=== PATIENT | male | born 1950 | race Caucasian/White ===

== ENCOUNTER 2017-01-05 06:18 | Outpatient (CLI) | payer MEDICARE, OTHER ==
[~2017-01-05] VITALS: Ht 182.9 cm; Wt 127.0 kg
[2017-01-05] VITALS (9 sets, daily range): BP systolic 91–123; BP diastolic 57–68
[2017-01-05] MEDS ORDERED: LIDOCAINE 2% 20 ML VIAL. ONE (07:11)
[2017-01-05] MEDS ORDERED: OXYB5TAB PO (07:13)
[2017-01-05] MEDS ORDERED: GABA400C PO (07:13)
[2017-01-05] MEDS ORDERED: ATOR40TA59 PO (07:13)
[2017-01-05] MEDS ORDERED: LISI-338 PO (07:13)
[2017-01-05] MEDS ORDERED: CYAN10005 PO (07:13)
[2017-01-05] MEDS ORDERED: TAMS0.4C2 PO (07:13)
[2017-01-05] MEDS ORDERED: HYDR50TA6 PO (07:13)
[2017-01-05] MEDS ORDERED: FISH1CAP PO (07:13)
[2017-01-05] MEDS ORDERED: METO25TA4 PO (07:13)
[2017-01-05] MEDS ORDERED: CHOL10003 PO (07:13)
[2017-01-05] MEDS ORDERED: ASPI-630 PO (07:13)
[2017-01-05] MEDS ORDERED: CALC500T54 PO (07:13)
[2017-01-05 07:17] LABS: HEMATOCRIT 41.6 % (39.0-53.0); RED BLOOD COUNT 4.53 x10^6/uL (4.30-5.70); RED CELL DISTRIBUTION WIDTH 14.7 % (11.5-14.5); WHITE BLOOD COUNT 6.2 x10^3/uL (4.0-11.0)
[2017-01-05 07:32] LABS: PROTHROMBIN TIME PATIENT 12.4 SEC (11.7-14.0)
[2017-01-05] MEDS ORDERED: IOHEXOL 300 MG/ML 100ML VIAL. ONE (07:39)
[2017-01-05 07:40] LABS: CALCIUM 10.3 mg/dL (8.5-10.1); CREATININE 1.1 mg/dL (0.7-1.3); GFR 66.6; POTASSIUM 4.2 mmol/L (3.5-5.1)
--- NOTE | 2017-01-05 07:49 | PDOC ---
MODERATE SEDATION ASSESSMENT RISKS/ALTERNATIVES Risks/Alternatives Risks and alternatives of this type of sedation and procedure discussed with: RISK/ALTERNATIVES: Patient H & P ON CHART H & P H & P on chart and reviewed for co-morbid conditions and appropriate labs. H&P ON CHART: Yes STATUS PREG STATUS ASSESSED: N/A MEDS/ALLERGIES REVIEWED Meds/Allergies Reviewed Medications and Allergies including time and route of recently administered narcotics and sedatives. MEDS/ALLERGIES REVIEWED: Yes ASA RATING ASA RATING: II AIRWAY ASSESSMENT Airway Assessment Airway patency, oral function limitations, presence of caps, crowns, dentures, partials, and ability to extend neck assessed. AIRWAY ASSESSMENT: Yes MALLAMPATI SCORE MALLAMPATI SCORE: II PRE-SEDATION ASSESSMENT PRE-SEDATION ASSESSMENT: Yes ANSON VILLATORO MD Jan 05, 2017 07:48
[2017-01-05] MEDS ORDERED: VERAPAMIL 5 MG/2 ML VIAL. ONE (07:54)
[2017-01-05] MEDS ORDERED: fentaNYL PF VIAL 100 MCG/2 ML VIAL ONE (07:54)
[2017-01-05] MEDS ORDERED: MIDAZOLAM HCL/PF 2 MG/2 ML VIAL. ONE (07:54)
[2017-01-05] MEDS ORDERED: HEPARIN for IV BOLUS 10,000 UNIT/10 ML VIAL. ONE (07:54)
[2017-01-05] MEDS ORDERED: NITROGLYCERIN 200 MCG/2 ML SYRINGE FOR CATH/VASC LAB. ONE (07:56)
[2017-01-05] MEDS ORDERED: HEPARIN for IV BOLUS 10,000 UNIT/10 ML VIAL. IART ONE (08:45)
[2017-01-05] MEDS ORDERED: NITROGLYCERIN SUBLINGUAL 0.4 MG BOTTLE OF 25. SL PRN (08:45)
[2017-01-05] MEDS ORDERED: NITROGLYCERIN 200 MCG/2 ML SYRINGE FOR CATH/VASC LAB. IART ONE (08:45)
[2017-01-05] MEDS ORDERED: VERAPAMIL 5 MG/2 ML VIAL. IART ONE (08:45)
[2017-01-05] MEDS ORDERED: CONTRAST GIVEN MC PRN (08:45)
[2017-01-05] MEDS ORDERED: IOHEXOL 300 MG/ML 100ML VIAL. IART ONE (08:45)
[2017-01-05] MEDS ORDERED: 0.9 % SODIUM CHLORIDE 10 ML DISP.SYRIN. IV PRN (08:45)
[2017-01-05] MEDS ORDERED: MIDAZOLAM HCL/PF 2 MG/2 ML VIAL. IV ONE (08:45)
[2017-01-05] MEDS ORDERED: LIDOCAINE 2% 20 ML VIAL. IJ ONE (08:45)
[2017-01-05] MEDS ORDERED: fentaNYL PF VIAL 100 MCG/2 ML VIAL IV ONE (08:45)
--- NOTE | 2017-01-05 09:16 | CARD ---
APPROVED REPORT Procedure(s) performed: Moderate sedation: 26 MINUTES [facility], Coronary angiography HISTORY The patient is a 66 year-old male with a history of : coronary artery disease, hypertension, dyslipid emia. INDICATION The indication(s) include : positive stress test, dyspnea. PROCEDURE NARRATIVE The patient was brought electively to the cardiac catheterization lab. A timeout was performed confi rming the patient's name, date of , procedure, and site of procedure. All necessary personnel w ere wearing the appropriate protective equipment and radiation monitor devices. After explaining the risks and benefits of the procedure and alternatives, informed consent was obtained. (See nursing no keegan for medications administered). The right wrist was sterilely prepped and draped in the usual fas hion. The right wrist was infiltrated with 1 mL of 2% lidocaine for subcutaneous anesthesia. A 6 Fr ench Terumo glide sheath was inserted into the right radial artery without difficulty. Right and lef t coronary angiography was performed using a 6Fr TIG 4.0 catheter. Left ventricular end diastolic pr essure was obtained with a TIG catheter and pullback was performed after left ventriculography. All catheter exchanges and advancements were performed over a guidewire. At case completion the right ra dial sheath was removed and a Terumo radial band was applied with 13 ml of air. The patient tolerate d the procedure well and there were no immediate complications. HEMODYNAMICS: LVEDP 10 mm Hg No gradient on LV to aortic pullback. LEFT VENTRICULOGRAM: Deferred due to known EF of > 70% on nuclear stress test. CORONARY ANGIOGRAPHY: LM is a large caliber very short vessel, with essential trifurcation at the ostium. LAD is a large caliber vessel with a patent ostial/proximal stent. The flow in the vessel is BING 2. Ramus is a moderate caliber vessel with normal angiographic apeparance. LCx is a moderate caliber non-dominant vessel with a patent mid stent extending into OM1. There is a 40% stenosis prior to the stent. OM1 is a moderate caliber vessel with a patent proximal stent. RCA is a large caliber dominant vessel with mild luminal irregularities of up to 30%. RPDA and RPL are small to moderate caliber vessels with normal angiographic appearance. *Overall, there is sluggish flow in the coronary tree suggestive of endothelial dysfunction. Conclusion 1. Two vessel CAD with patent stents in the LAD and LCx 2. Normal LVEDP 3. Suspect endothelial dysfunction the reason for his stress test abnormality. Recommendations Aggressive medical therapy Start exercise program. Cut Metoprolol to 12.5mg bid Cut HCTZ to 12.5mg daily Continue ASA, Statin. Repeat office evaluation in 6 weeks, consider EECP if he still has dyspnea.
== END 2017-01-05 11:30 | disposition home or self-care (01) ==
LOC: CCL 06:18
PROVIDERS: ATTEND Internal Medicine Cardiovascular Disease
DX: I25.10 Atherosclerotic heart disease of native coronary artery without angina pectoris (principal); E78.5 Hyperlipidemia, unspecified; I10 Essential (primary) hypertension; I73.9 Peripheral vascular disease, unspecified; E78.00 Pure hypercholesterolemia, unspecified
CPT/HCPCS: 36415; 80048; 85027; 85610; 93458; 99152; 99153; C1769; C1892; J1644; J2250; J3010; J3490; Q9967; J2001

== ENCOUNTER → 2017-06-22 | Outpatient (CLI) | payer MEDICARE, OTHER ==
[2017-06-22 09:38] LABS: ALBUMIN 3.5 g/dL (3.4-5.0); ALBUMIN/GLOBULIN RATIO 0.9 (1.0-1.7); ALK PHOS 86 U/L (46-116); ALT (SGPT) 35 U/L (16-63); ANION GAP 6 (6-14); AST (SGOT) 26 U/L (15-37); BLOOD UREA NITROGEN 15 mg/dL (8-26); BUN/CREATININE RATIO 13 (6-20); CALCIUM 9.5 mg/dL (8.5-10.1); CARBON DIOXIDE 30 mmol/L (21-32); CHLORIDE 105 mmol/L (98-107); CHOLESTEROL 156 mg/dL (0-200); CREATININE 1.2 mg/dL (0.7-1.3); GLUCOSE 114 mg/dL (70-99); HDLC 59 mg/dL (40-60); LDLC 63 mg/dL (0-100); NON-HDL CHOLESTEROL 97 mg/dL (0-129); POTASSIUM 4.8 mmol/L (3.5-5.1); SODIUM 141 mmol/L (136-145); TOTAL BILIRUBIN 0.7 mg/dL (0.2-1.0); TOTAL PROTEIN 7.3 g/dL (6.4-8.2); TRIGLYCERIDES 169 mg/dL (0-150); VLDLC 34 mg/dL (0-40)
[2017-06-22 09:39] LABS: CHOLESTEROL/HDL RATIO 2.6
== END | disposition home or self-care (01) ==
LOC: NM 08:57
DX: I25.10 Atherosclerotic heart disease of native coronary artery without angina pectoris (principal); I10 Essential (primary) hypertension; E78.5 Hyperlipidemia, unspecified
CPT/HCPCS: 36415; 80053; 80061

== ENCOUNTER → 2018-10-03 | Day surgery (SDC) | payer MEDICARE, OTHER ==
[~2018-10-03] VITALS: Ht 180.3 cm; Wt 125.8 kg
[~2018-10-03] MED LIST: ASPI-630 PO; ATOR40TA59 PO; CALC500T54 PO; CHOL10003 PO; CYAN-25 PO; FISH1CAP PO; GABA-689 PO; HYDR50TA6 PO; IV RINGERS,LACTATED 500ML 1,000 ML IV ONE; IV RINGERS,LACTATED 500ML 500 ML IV ONE; LISI-338 PO; METO25TA4 PO; MIDAZOLAM HCL/PF 5 MG/5 ML VIAL. IV ONE; MIDAZOLAM HCL/PF 5 MG/5 ML VIAL. ONE; OXYB5TAB PO; TAMS0.4C2 PO; diphenhydrAMINE 50 MG/ML VIAL IV ONE; diphenhydrAMINE 50 MG/ML VIAL ONE; fentaNYL PF VIAL 100 MCG/2 ML VIAL IV ONE; fentaNYL PF VIAL 100 MCG/2 ML VIAL ONE
--- NOTE | 2018-10-03 17:14 | PHYS DOC ---
Adult General Chief Complaint Chief Complaint: DIFFICULTY SWALLOWING HPI HPI Patient is a 68 year old female who presents with was eating on a brownie's this morning when he felt like a piece of were not was stuck in his esophagus. Patient states he tried to eat another little piece of brownie of which came back up. Patient states he can get down a small amount of water. Patient states he can swallow his own saliva. He states he has no pain but did feel at the bottom of his throat that there is a blockage. Patient denies any nausea. Patient states last week he is eating a small piece of steak when it got stuck in his esophagus but he was able to go in the bathroom vomited back up. Patient states also last week he ate a flour tortilla and a piece got stuck in his esophagus but he was able to also get that back up. Patient states that he tried to stick his finger in the back of his throat to see if he can get himself to vomit the brownie or one on a piece back up but he cannot. Review of Systems Review of Systems Constitutional: Denies fever or chills [] Eyes: Denies change in visual acuity, redness, or eye pain [] HENT: Denies nasal congestion or sore throat [] Respiratory: Denies cough or shortness of breath [] Cardiovascular: No additional information not addressed in HPI [] GI: Food bolus. Denies abdominal pain, nausea, vomiting, bloody stools or diarrhea [] : Denies dysuria or hematuria [] Musculoskeletal: Denies back pain or joint pain [] Integument: Denies rash or skin lesions [] Neurologic: Denies headache, focal weakness or sensory changes [] Endocrine: Denies polyuria or polydipsia [] All other systems were reviewed and found to be within normal limits, except as documented in this note. Current Medications Current Medications Current Medications Medications (Trade) Dose Ordered Sig/Varun Start Time Stop Time Status Last Admin Dose Admin Ringer's Solution 1,000 ml @ 0 mls/hr 1X ONCE 10/03/18 19:00 10/03/18 19:01 UNV 10/03/18 18:52 30 MLS/HR Allergies Allergies Allergies Coded Allergies Type Severity Reaction Last Updated Verified No Known Drug Allergies 12/30/16 No Physical Exam Physical Exam Constitutional: Well developed, well nourished, no acute distress, non-toxic appearance. [] HENT: Normocephalic, atraumatic, bilateral external ears normal, oropharynx moist, no oral exudates, nose normal. Excess saliva and having to spit.[] Eyes: PERRLA, EOMI, conjunctiva normal, no discharge. [] Neck: Normal range of motion, no tenderness, supple, no stridor. [] Cardiovascular:Heart rate regular rhythm, no murmur [] Lungs & Thorax: Bilateral breath sounds clear to auscultation [] Abdomen: Bowel sounds normal, soft, no tenderness, no masses, no pulsatile masses. [] Skin: Warm, dry, no erythema, no rash. [] Back: No tenderness, no CVA tenderness. [] Extremities: No tenderness, no cyanosis, no clubbing, ROM intact, no edema. [] Neurologic: Alert and oriented X 3, normal motor function, normal sensory function, no focal deficits noted. [] Psychologic: Affect normal, judgement normal, mood normal. [] Current Patient Data Vital Signs Vital Signs Date Time Temp Pulse Resp B/P (MAP) Pulse Ox O2 Delivery O2 Flow Rate FiO2 10/03/18 18:30 78 16 119/63 (81) 94 Room Air 10/03/18 16:55 98.1 98.1 Lab Values Laboratory Tests Test 10/03/18 17:30 White Blood Count 8.6 x10^3/uL (4.0-11.0) Red Blood Count 5.05 x10^6/uL (4.30-5.70) Hemoglobin 16.3 g/dL (13.0-17.5) Hematocrit 46.2 % (39.0-53.0) Mean Corpuscular Volume 91 fL (79-100) Mean Corpuscular Hemoglobin 32 pg (25-35) Mean Corpuscular Hemoglobin Concent 35 g/dL (31-37) Red Cell Distribution Width 14.7 % (11.5-14.5) H Platelet Count 211 x10^3/uL (140-400) Neutrophils (%) (Auto) 73 % (31-73) Lymphocytes (%) (Auto) 17 % (24-48) L Monocytes (%) (Auto) 8 % (0-9) Eosinophils (%) (Auto) 2 % (0-3) Basophils (%) (Auto) 1 % (0-3) Neutrophils # (Auto) 6.3 x10^3/uL (1.8-7.7) Lymphocytes # (Auto) 1.5 x10^3/uL (1.0-4.8) Monocytes # (Auto) 0.6 x10^3/uL (0.0-1.1) Eosinophils # (Auto) 0.1 x10^3/uL (0.0-0.7) Basophils # (Auto) 0.1 x10^3/uL (0.0-0.2) Sodium Level 141 mmol/L (136-145) Potassium Level 3.6 mmol/L (3.5-5.1) Chloride Level 103 mmol/L (98-107) Carbon Dioxide Level 27 mmol/L (21-32) Anion Gap 11 (6-14) Blood Urea Nitrogen 13 mg/dL (8-26) Creatinine 1.1 mg/dL (0.7-1.3) Estimated GFR (Cockcroft-Gault) 66.2 BUN/Creatinine Ratio 12 (6-20) Glucose Level 101 mg/dL (70-99) H Calcium Level 9.2 mg/dL (8.5-10.1) Total Bilirubin 1.1 mg/dL (0.2-1.0) H Aspartate Amino Transferase (AST) 28 U/L (15-37) Alanine Aminotransferase (ALT) 39 U/L (16-63) Alkaline Phosphatase 86 U/L (46-116) Total Protein 7.7 g/dL (6.4-8.2) Albumin 4.0 g/dL (3.4-5.0) Albumin/Globulin Ratio 1.1 (1.0-1.7) Laboratory Tests 10/03/18 17:30 Laboratory Tests 10/03/18 17:30 EKG EKG [] Radiology/Procedures Radiology/Procedures [] Impressions: [facility] [address] [place] [address] IMAGING REPORT Signed PATIENT: SHARMAINE HESTER ACCOUNT: [id number] : 1950 LOCATION: ER AGE: 68 SEX: M EXAM STATUS: REG ER ORD. PHYSICIAN: FABRICE MARTÍNEZ APRN REASON: states feels as though food stuck in esophagus PROCEDURE: CHEST PA & LATERAL Exam: Chest 2 views INDICATION: Food getting stuck TECHNIQUE: Frontal and lateral views of the chest Comparisons: None FINDINGS: The cardiomediastinal silhouette and pulmonary vessels are within normal limits. The lung and pleural spaces are clear. Dilated appearance of the esophagus. IMPRESSION: Dilated appearance of the esophagus. Correlate for achalasia. Recommend GI referral for further evaluation. Electronically signed by: Melissa Romo MD (10/03/2018 5:42 PM) [facility] DICTATED and SIGNED BY: MELISSA ROMO MD DATE: 10/03/18 174 Course & Med Decision Making Course & Med Decision Making Patient is a 68 year old female who presents with was eating on a brownie's this morning when he felt like a piece of were not was stuck in his esophagus. Patient states he tried to eat another little piece of brownie of which came back up. Patient states he can get down a small amount of water. Patient states he can swallow his own saliva. He states he has no pain but did feel at the bottom of his throat that there is a blockage. Patient denies any nausea. Patient states last week he is eating a small piece of steak when it got stuck in his esophagus but he was able to go in the bathroom vomited back up. Patient states also last week he ate a flour tortilla and a piece got stuck in his e sophagus but he was able to also get that back up. Patient states that he tried to stick his finger in the back of his throat to see if he can get himself to vomit the brownie or one on a piece back up but he cannot. She denies abdominal pain, chest pain, nausea, shortness of air. Speaks in full clear sentences. Vital signs within normal limits. Skin is pink warm and dry. Lungs are clear to auscultation all lobes. Abdomen is soft and nontender. Mucous membranes moist. Patient is spitting some saliva out. I have spoken to Dr. Joshua of and he states he is coming into ED to see the patient. The anesthesiologist was coming to speak with the patient and states that there is another surgery out of him. Patient is discharged to a GI has a Laverne RN in from outpatient GI is over to get the patient states he does not need to be admitted and if he does that Dr. Joshua will admit the patient. Nico Disclaimer Dragon Disclaimer This electronic medical record was generated, in whole or in part, using a voice recognition dictation system. Departure Departure Impression: Primary Impression: Foreign body in throat Disposition: 05 TRANSFER OTHER (GI ) Condition: STABLE Referrals: VIOLA BALDWIN V (PCP) Problem Qualifiers Primary Impression: Foreign body in throat Encounter type: initial encounter Qualified Codes: T17.208A - Unspecified foreign body in pharynx causing other injury, initial encounter FABRICE MARTÍNEZ SCOOP OPERATOR Oct 03, 2018 17:14
--- NOTE | 2018-10-03 17:45 | RAD ---
Exam: Chest 2 views INDICATION: Food getting stuck TECHNIQUE: Frontal and lateral views of the chest Comparisons: None FINDINGS: The cardiomediastinal silhouette and pulmonary vessels are within normal limits. The lung and pleural spaces are clear. Dilated appearance of the esophagus. IMPRESSION: Dilated appearance of the esophagus. Correlate for achalasia. Recommend GI referral for further evaluation. Electronically signed by: Melissa Holman MD (10/03/2018 5:42 PM) [facility]
[2018-10-03 17:56] LABS: BASO # 0.1 x10^3/uL (0.0-0.2); BASO % 1 % (0-3); EOS # 0.1 x10^3/uL (0.0-0.7); EOS % 2 % (0-3); HEMATOCRIT 46.2 % (39.0-53.0); HEMOGLOBIN 16.3 g/dL (13.0-17.5); LYMPH # 1.5 x10^3/uL (1.0-4.8); LYMPH % 17 % (24-48); MEAN CORPUSCULAR HEMOGLOBIN 32 pg (25-35); MEAN CORPUSCULAR HGB CONC 35 g/dL (31-37); MEAN CORPUSCULAR VOLUME 91 fL (79-100); MONO # 0.6 x10^3/uL (0.0-1.1); MONO % 8 % (0-9); NEUT # 6.3 x10^3/uL (1.8-7.7); NEUT % 73 % (31-73); PLATELET COUNT 211 x10^3/uL (140-400); RED BLOOD COUNT 5.05 x10^6/uL (4.30-5.70); RED CELL DISTRIBUTION WIDTH 14.7 % (11.5-14.5); WHITE BLOOD COUNT 8.6 x10^3/uL (4.0-11.0)
[2018-10-03 18:00] LABS: ALBUMIN/GLOBULIN RATIO 1.1 (1.0-1.7); CALCIUM 9.2 mg/dL (8.5-10.1); CREATININE 1.1 mg/dL (0.7-1.3); GFR 66.2; POTASSIUM 3.6 mmol/L (3.5-5.1); TOTAL BILIRUBIN 1.1 mg/dL (0.2-1.0); TOTAL PROTEIN 7.7 g/dL (6.4-8.2)
--- NOTE | 2018-10-03 19:12 | PDOC2 ---
CONSULT Date of Consult Date of Consult DATE: 10/03/18 TIME: 19:03 Reason for Consult Reason for Consult: food stuck in esophagus History of Present Illness Reason for Visit: This is a 68 yo male with a history of food dysphagia in past- years ago- resolved but then over the past few weeks, a few episodes of food like steak getting stuck- resolved with self induced vomiting- today- brownie with walnuts- got stuck- cant swallow fluid- he tried- still ok with saliva- history of indigestion/heartburn but no meds scheduled for f/u colonoscopy at [facility] in November - prior exams were normal. No prior EGD. Past Medical History Cardiovascular: OK Past Surgical History Past Surgical History: Hernia Repair, Other (cardiac stents) Current Problem List Problem List Problems Medical Problems: (1) Foreign body in throat Status: Acute Current Medications Current Medications Current Medications Ringer's Solution 500 ml @ 0 mls/hr 1X ONCE IV ; Start 10/03/18 at 18:45; Stop 10/03/18 at 18:50; Status DC Ringer's Solution 1,000 ml @ 0 mls/hr 1X ONCE IV Last administered on 10/03/18at 18:52; Start 10/03/18 at 19:00; Stop 10/03/18 at 19:01; Status DC Active Scripts Active Reported Oxybutynin Chloride Er (Oxybutynin Chloride) 5 Mg Tab.er.24 1 Tab PO HS Tamsulosin Hcl 0.4 Mg Cap.er.24h 1 Cap PO DAILY Calcium (Calcium Carbonate) 500 Mg Tab.chew 1,000 Mg PO DAILY Hydrochlorothiazide Tablet (Hydrochlorothiazide) 50 Mg Tablet 0.5 Tab PO DAILY Neurontin (Gabapentin) 400 Mg Capsule 400 Mg PO TID Atorvastatin Calcium 40 Mg Tablet 1 Tab PO DAILY Lisinopril 5 Mg Tablet 1 Tab PO DAILY Metoprolol Tartrate 25 Mg Tablet 1 Tab PO BID Aspirin 81 Mg Tab.chew 1 Tab PO DAILY Vitamin B-12 (Cyanocobalamin (Vitamin B-12)) 1,000 Mcg Tablet 1 Tab PO DAILY Vitamin D3 (Cholecalciferol (Vitamin D3)) 1,000 Unit Tablet 1 Tab PO DAILY Fish Oil 1,200 Mg Fish Oil (Fish Oil/Dha/Epa) 1 Each Capsule 1 Each PO DAILY Allergies Allergies: Coded Allergies: No Known Drug Allergies (Unverified , 12/30/16) Physical Exam General: Alert, Oriented X3 HEENT: Atraumatic Lungs: Clear to auscultation Heart: Regular rate, Normal S1, Normal S2 Abdomen: Normal bowel sounds, Soft, No tenderness, No hepatosplenomegaly Psych/Mental Status: Mental status NL Vitals VITALS Vital Signs Date Time Temp Pulse Resp B/P (MAP) Pulse Ox O2 Delivery O2 Flow Rate FiO2 10/03/18 18:30 78 16 119/63 (81) 94 Room Air 10/03/18 16:55 98.1 98.1 Labs Labs Laboratory Tests Test 10/03/18 17:30 White Blood Count 8.6 x10^3/uL (4.0-11.0) Red Blood Count 5.05 x10^6/uL (4.30-5.70) Hemoglobin 16.3 g/dL (13.0-17.5) Hematocrit 46.2 % (39.0-53.0) Mean Corpuscular Volume 91 fL (79-100) Mean Corpuscular Hemoglobin 32 pg (25-35) Mean Corpuscular Hemoglobin Concent 35 g/dL (31-37) Red Cell Distribution Width 14.7 % (11.5-14.5) Platelet Count 211 x10^3/uL (140-400) Neutrophils (%) (Auto) 73 % (31-73) Lymphocytes (%) (Auto) 17 % (24-48) Monocytes (%) (Auto) 8 % (0-9) Eosinophils (%) (Auto) 2 % (0-3) Basophils (%) (Auto) 1 % (0-3) Neutrophils # (Auto) 6.3 x10^3/uL (1.8-7.7) Lymphocytes # (Auto) 1.5 x10^3/uL (1.0-4.8) Monocytes # (Auto) 0.6 x10^3/uL (0.0-1.1) Eosinophils # (Auto) 0.1 x10^3/uL (0.0-0.7) Basophils # (Auto) 0.1 x10^3/uL (0.0-0.2) Sodium Level 141 mmol/L (136-145) Potassium Level 3.6 mmol/L (3.5-5.1) Chloride Level 103 mmol/L (98-107) Carbon Dioxide Level 27 mmol/L (21-32) Anion Gap 11 (6-14) Blood Urea Nitrogen 13 mg/dL (8-26) Creatinine 1.1 mg/dL (0.7-1.3) Estimated GFR (Cockcroft-Gault) 66.2 BUN/Creatinine Ratio 12 (6-20) Glucose Level 101 mg/dL (70-99) Calcium Level 9.2 mg/dL (8.5-10.1) Total Bilirubin 1.1 mg/dL (0.2-1.0) Aspartate Amino Transf (AST/SGOT) 28 U/L (15-37) Alanine Aminotransferase (ALT/SGPT) 39 U/L (16-63) Alkaline Phosphatase 86 U/L (46-116) Total Protein 7.7 g/dL (6.4-8.2) Albumin 4.0 g/dL (3.4-5.0) Albumin/Globulin Ratio 1.1 (1.0-1.7) Laboratory Tests Test 10/03/18 17:30 White Blood Count 8.6 x10^3/uL (4.0-11.0) Red Blood Count 5.05 x10^6/uL (4.30-5.70) Hemoglobin 16.3 g/dL (13.0-17.5) Hematocrit 46.2 % (39.0-53.0) Mean Corpuscular Volume 91 fL (79-100) Mean Corpuscular Hemoglobin 32 pg (25-35) Mean Corpuscular Hemoglobin Concent 35 g/dL (31-37) Red Cell Distribution Width 14.7 % (11.5-14.5) Platelet Count 211 x10^3/uL (140-400) Neutrophils (%) (Auto) 73 % (31-73) Lymphocytes (%) (Auto) 17 % (24-48) Monocytes (%) (Auto) 8 % (0-9) Eosinophils (%) (Auto) 2 % (0-3) Basophils (%) (Auto) 1 % (0-3) Neutrophils # (Auto) 6.3 x10^3/uL (1.8-7.7) Lymphocytes # (Auto) 1.5 x10^3/uL (1.0-4.8) Monocytes # (Auto) 0.6 x10^3/uL (0.0-1.1) Eosinophils # (Auto) 0.1 x10^3/uL (0.0-0.7) Basophils # (Auto) 0.1 x10^3/uL (0.0-0.2) Sodium Level 141 mmol/L (136-145) Potassium Level 3.6 mmol/L (3.5-5.1) Chloride Level 103 mmol/L (98-107) Carbon Dioxide Level 27 mmol/L (21-32) Anion Gap 11 (6-14) Blood Urea Nitrogen 13 mg/dL (8-26) Creatinine 1.1 mg/dL (0.7-1.3) Estimated GFR (Cockcroft-Gault) 66.2 BUN/Creatinine Ratio 12 (6-20) Glucose Level 101 mg/dL (70-99) Calcium Level 9.2 mg/dL (8.5-10.1) Total Bilirubin 1.1 mg/dL (0.2-1.0) Aspartate Amino Transf (AST/SGOT) 28 U/L (15-37) Alanine Aminotransferase (ALT/SGPT) 39 U/L (16-63) Alkaline Phosphatase 86 U/L (46-116) Total Protein 7.7 g/dL (6.4-8.2) Albumin 4.0 g/dL (3.4-5.0) Albumin/Globulin Ratio 1.1 (1.0-1.7) Images Images CXR Assessment/Plan Assessment/Plan Acute food impaction- walnuts in brownie- history of prior dysphagia with solids in past- and some indigestion history as well Plan- EGD with removal of foreign body urgently JOSE ALEJANDRO CASTRO MD Oct 03, 2018 19:12
--- NOTE | 2018-10-03 19:36 | PDOC4 ---
PROCEDURE Procedure EGD with foreign body removal versed 3 mg, benadryl 25 mg , versed 75 mcg Findings- solid food obstruction distal esophagus- not able to push through- using Jalloh net, removed large piece of walnut- then able to pass scope- tight stricture with esophagitis noted along with HH-stomach normal- duodenum normal Plan=- soft foods omeprazole 40 mg daily repeat EGD in 1 month JOSE ALEJANDRO CASTRO MD Oct 03, 2018 19:36
[2018-10-03 19:54] VITALS: BP 131/76
== END ==
LOC: ER 16:46 → SDC 19:00
PROVIDERS: ATTEND Internal Medicine
DX: T18.128A Food in esophagus causing other injury, initial encounter (principal); K22.2 Esophageal obstruction; K44.9 Diaphragmatic hernia without obstruction or gangrene; I25.2 Old myocardial infarction; Z98.890 Other specified postprocedural states; X58.XXXA Exposure to other specified factors, initial encounter; Y93.89 Activity, other specified; Y92.89 Other specified places as the place of occurrence of the external cause; Y99.8 Other external cause status
CPT/HCPCS: 36415; 43247; 43450; 71046; 80053; 85025; J1200; J2250; J3010; J7120; G0500

== ENCOUNTER → 2019-03-23 | Outpatient (CLI) | payer MEDICARE, OTHER ==
[2018-10-03 19:54] VITALS: BP 131/76
[~2019-03-23] MED LIST changes: -IV RINGERS,LACTATED 500ML 1,000 ML IV ONE; -IV RINGERS,LACTATED 500ML 500 ML IV ONE; -MIDAZOLAM HCL/PF 5 MG/5 ML VIAL. IV ONE; -MIDAZOLAM HCL/PF 5 MG/5 ML VIAL. ONE; +OXYB-36 PO; -OXYB5TAB PO; -diphenhydrAMINE 50 MG/ML VIAL IV ONE; -diphenhydrAMINE 50 MG/ML VIAL ONE; -fentaNYL PF VIAL 100 MCG/2 ML VIAL IV ONE; -fentaNYL PF VIAL 100 MCG/2 ML VIAL ONE
--- NOTE | 2019-03-23 10:14 | CARD ---
MR#: [id number] Date of Study: 03/23/2019 Ordering Physician: ANSON VILLATORO, Referring Physician: ANSON VILLATORO, Tech: Laura Purcell [facility] APPROVED REPORT EXAM: Two-dimensional and M-mode echocardiogram with Doppler and color Doppler. Other Information Quality : Average INDICATION CAD RISK FACTORS Hypertension Hyperlipidemia CAD 2D DIMENSIONS RVDd4.3 (2.9-3.5cm)Left Atrium(2D)4.0 (1.6-4.0cm) IVSd1.3 (0.7-1.1cm)Aortic Root(2D)3.5 (2.0-3.7cm) LVDd3.6 (3.9-5.9cm)LVOT Diameter2.3 (1.8-2.4cm) PWd1.4 (0.7-1.1cm)LVDs2.7 (2.5-4.0cm) FS (%) 26.8 %SV29.8 ml LVEF(%)53.1 (>50%) Aortic Valve AoV Peak Varun.130.6cm/Lisette Peak GR.6.8mmHg LVOT Peak Varun.126.3cm/sAVA (VMAX)4.03cm2 Mitral Valve MV E Ljjsgptb47.8cm/sMV DECEL [id number] MV A Wezrgsuj61.7cm/sE/A Ratio1.3 MV A [id number] Pulmonary Valve PV Peak Ukocoljh848.6cm/s Tricuspid Valve TR P. Hjfuihbd722tf/sTR Peak Gr.29mmHg Pulmonary Vein S1 Njkrlgic37.3cm/sD2 Tkbatyzz56.0cm/s PVa fjqdisfb06nofd LEFT VENTRICLE The left ventricle is normal size. There is mild concentric left ventricular hypertrophy. The left ve ntricular systolic function is normal. The Ejection Fraction is 55-60%. There is normal LV segmental wall motion. The left ventricular diastolic function and filling is normal for age. There is no ventr icular septal defect visualized. RIGHT VENTRICLE The right ventricle is mildly dilated. The right ventricular systolic function is normal. ATRIA The left atrium size is normal. The right atrium is mildly dilated. The interatrial septum is intact with no evidence for an atrial septal defect or patent foramen ovale as noted on 2-D or Doppler imagi ng. AORTIC VALVE The aortic valve is normal in structure and function. Doppler and Color Flow revealed no significant aortic regurgitation. There is no significant aortic valvular stenosis. MITRAL VALVE The mitral valve is normal in structure and function. There is no mitral valve stenosis. Doppler and Color-flow revealed trace to mild mitral regurgitation. TRICUSPID VALVE The tricuspid valve is normal in structure and function. Doppler and Color Flow revealed trace tricus pid regurgitation. PAP is estimated at 32-44 mmHg. Unable to visualize IVC. There is no tricuspid otto ve stenosis. PULMONIC VALVE The pulmonary valve is normal in structure and function. Doppler and Color Flow revealed trace pulmon ic valvular regurgitation. There is no pulmonic valvular stenosis. GREAT VESSELS The aortic root is normal in size. The ascending aorta is normal in size. The pulmonary artery is nor mal. Unable to visualize IVC. PERICARDIAL EFFUSION There is no pleural effusion. There is no evidence of significant pericardial effusion. Critical Notification Critical Value: No <Conclusion> The left ventricular systolic function is normal. The Ejection Fraction is 55-60%. There is normal LV segmental wall motion. Trace to mild mitral regurgitation. Trace tricuspid regurgitation. PAP is estimated at 32-44 mmHg. There is no evidence of significant pericardial effusion. Signed by : Ubaldo Ramirez, Electronically Approved : 03/23/2019 10:14:09
== END | disposition home or self-care (01) ==
LOC: ECHO 08:27
PROVIDERS: ATTEND Internal Medicine Cardiovascular Disease
DX: I34.0 Nonrheumatic mitral (valve) insufficiency (principal); I25.10 Atherosclerotic heart disease of native coronary artery without angina pectoris; I10 Essential (primary) hypertension; E78.5 Hyperlipidemia, unspecified
CPT/HCPCS: 93306

== ENCOUNTER 2021-05-13 08:17 | Outpatient (CLI) | payer MEDICARE, OTHER ==
[~2021-05-13] VITALS: Ht 180.3 cm; Wt 122.7 kg
[2021-05-13] VITALS (12 sets, daily range): BP systolic 102–131; BP diastolic 50–82
[~2021-05-13 08:17] MED LIST changes: -HYDR50TA6 PO; +HYDR50TA9 PO; -LISI-338 PO; +LISI5TAB15 PO
[2021-05-13 08:40] LABS: HEMATOCRIT 45.2 % (39.0-53.0); HEMOGLOBIN 15.4 g/dL (13.0-17.5); RED BLOOD COUNT 4.84 x10^6/uL (4.30-5.70); RED CELL DISTRIBUTION WIDTH 14.2 % (11.5-14.5); WHITE BLOOD COUNT 7.6 x10^3/uL (4.0-11.0)
[2021-05-13] MEDS ORDERED: SPIR25TA5 PO (08:43)
[2021-05-13] MEDS ORDERED: MULT-735 PO (08:43)
[2021-05-13] MEDS ORDERED: TROS20TA2 PO (08:43)
[2021-05-13 08:50] LABS: PROTHROMBIN TIME PATIENT 12.9 SEC (11.7-14.0)
[2021-05-13 08:54] LABS: CALCIUM 8.9 mg/dL (8.5-10.1); CREATININE 1.1 mg/dL (0.7-1.3); GFR 65.6; POTASSIUM 4.1 mmol/L (3.5-5.1)
[2021-05-13] MEDS ORDERED: LIDOCAINE 1% Multi-Dose 20 ML VIAL. ONE (09:31)
[2021-05-13] MEDS ORDERED: fentaNYL PF VIAL 100 MCG/2 ML VIAL ONE (09:53)
[2021-05-13] MEDS ORDERED: VERAPAMIL 5 MG/2 ML VIAL. ONE (09:53)
[2021-05-13] MEDS ORDERED: MIDAZOLAM HCL/PF 2 MG/2 ML VIAL. ONE (09:53)
[2021-05-13] MEDS ORDERED: HEPARIN for IV BOLUS 10,000 UNIT/10 ML VIAL. ONE (09:53)
[2021-05-13] MEDS ORDERED: NITROGLYCERIN 200 MCG/2 ML SYRINGE FOR CATH/VASC LAB. ONE ×2 (09:53→10:49)
--- NOTE | 2021-05-13 10:02 | PDOC1 ---
History and Physical Visit Information Date of Admission: May 13, 2021 History of Present Illness History of Present Illness Eliazar is a pleasant 70-year-old man who comes into the hospital for a planned outpatient cardiac catheterization for evaluation of persistent dyspnea. He also has a primary systems programmer analyst through the [facility] and apparently had a CT scan suggestive of coronary atherosclerosis and he was advised to have a cardiac catheterization performed. The patient has had longstanding dyspnea and reports that his dyspnea is been getting worse over the last several weeks. He denies any angina but does have chest pressure with activities. He denies any syncope or palpitations. No other hospitalizations or ER visits. Cardiac Risk Factors Comments Obstructive sleep apnea Coronary artery disease Dyslipidemia Morbid obesity Hypertension Current Medications Current Medications Current Medications Fentanyl Citrate (Fentanyl 2ml Vial) 100 mcg STK-MED ONCE .ROUTE ; Start 05/13/21 at 09:53; Stop 05/13/21 at 09:53; Status DC Heparin Sodium (Porcine) (Heparin Sodium) 10,000 unit STK-MED ONCE .ROUTE ; Start 05/13/21 at 09:53; Stop 05/13/21 at 09:53; Status DC Heparin Sodium/ Sodium Chloride 1,000 ml @ As Directed STK-MED ONCE .ROUTE ; Start 05/13/21 at 09:32; Stop 05/13/21 at 09:32; Status DC Lidocaine HCl (Lidocaine 1% 20ml Vial) 20 ml STK-MED ONCE .ROUTE ; Start 05/13/21 at 09:31; Stop 05/13/21 at 09:32; Status DC Midazolam HCl (Versed) 2 mg STK-MED ONCE .ROUTE ; Start 05/13/21 at 09:53; Stop 05/13/21 at 09:53; Status DC Nitroglycerin (Nitroglycerin) 200 mcg STK-MED ONCE .ROUTE ; Start 05/13/21 at 09:53; Stop 05/13/21 at 09:54; Status DC Verapamil HCl (Verapamil) 5 mg STK-MED ONCE .ROUTE ; Start 05/13/21 at 09:53; Stop 05/13/21 at 09:53; Status DC Allergies Allergies Allergies Coded Allergies Type Severity Reaction Last Updated Verified No Known Drug Allergies 10/03/18 No Social History Comments No alcohol, tobacco or illicit drug use Family History Comments Noncontributory ROS Review of System Negative for 10 out of 14 systems reviewed unless otherwise mentioned above in HPI Physical Exam Comments The patient appeared well nourished and normally developed. Head exam is unremarkable. No scleral icterus or corneal arcus noted. Neck is without jugular venous distension, thyromegaly, or carotid bruits. Carotid upstrokes are brisk bilaterally. Lungs are clear to auscultation and percussion. Cardiac exam reveals the PMI to be normally sized and situated. Rhythm is regular. First and second heart sounds normal. No murmurs, rubs or gallops. Abdominal exam reveals normal bowel sounds, no masses, no organomegaly and no aortic enlargement. Extremities are nonedematous and both femoral and pedal pulses are normal. Msk: No traumua Neuro: No focal deficits Vitals VITALS Vital Signs Date Time Temp Pulse Resp B/P (MAP) Pulse Ox O2 Delivery O2 Flow Rate FiO2 05/13/21 09:00 98.5 62 21 131/71 (91) 95 Room Air 98.5 Labs Labs Laboratory Tests Test 05/13/21 08:30 White Blood Count 7.6 x10^3/uL (4.0-11.0) Red Blood Count 4.84 x10^6/uL (4.30-5.70) Hemoglobin 15.4 g/dL (13.0-17.5) Hematocrit 45.2 % (39.0-53.0) Mean Corpuscular Volume 94 fL (79-100) Mean Corpuscular Hemoglobin 32 pg (25-35) Mean Corpuscular Hemoglobin Concent 34 g/dL (31-37) Red Cell Distribution Width 14.2 % (11.5-14.5) Platelet Count 193 x10^3/uL (140-400) Prothrombin Time 12.9 SEC (11.7-14.0) Prothromb Time International Ratio 1.0 (0.8-1.1) Sodium Level 143 mmol/L (136-145) Potassium Level 4.1 mmol/L (3.5-5.1) Chloride Level 105 mmol/L (98-107) Carbon Dioxide Level 26 mmol/L (21-32) Anion Gap 12 (6-14) Blood Urea Nitrogen 12 mg/dL (8-26) Creatinine 1.1 mg/dL (0.7-1.3) Estimated GFR (Cockcroft-Gault) 65.6 Glucose Level 114 mg/dL (70-99) Calcium Level 8.9 mg/dL (8.5-10.1) Laboratory Tests Test 05/13/21 08:30 White Blood Count 7.6 x10^3/uL (4.0-11.0) Red Blood Count 4.84 x10^6/uL (4.30-5.70) Hemoglobin 15.4 g/dL (13.0-17.5) Hematocrit 45.2 % (39.0-53.0) Mean Corpuscular Volume 94 fL (79-100) Mean Corpuscular Hemoglobin 32 pg (25-35) Mean Corpuscular Hemoglobin Concent 34 g/dL (31-37) Red Cell Distribution Width 14.2 % (11.5-14.5) Platelet Count 193 x10^3/uL (140-400) Prothrombin Time 12.9 SEC (11.7-14.0) Prothromb Time International Ratio 1.0 (0.8-1.1) Sodium Level 143 mmol/L (136-145) Potassium Level 4.1 mmol/L (3.5-5.1) Chloride Level 105 mmol/L (98-107) Carbon Dioxide Level 26 mmol/L (21-32) Anion Gap 12 (6-14) Blood Urea Nitrogen 12 mg/dL (8-26) Creatinine 1.1 mg/dL (0.7-1.3) Estimated GFR (Cockcroft-Gault) 65.6 Glucose Level 114 mg/dL (70-99) Calcium Level 8.9 mg/dL (8.5-10.1) ECG EKG: NSR VTE Prophylaxis Ordered VTE Prophylaxis Devices: No VTE Pharmacological Prophylaxi: No Assessment/Plan Assessment/Plan 1. 71 y.o old man with known coronary artery disease presents to the hospital with exertional dyspnea and chest pressure. We will plan for coronary angiography Justicifation of Admission Dx: Justifications for Admission: Justification of Admission Dx: N/A ANSON VILLATORO MD May 13, 2021 10:02
[2021-05-13] MEDS ORDERED: IODIXANOL 320 MG/ML 100 ML VIAL. ONE (10:18)
[2021-05-13] MEDS ORDERED: MIDAZOLAM HCL/PF 2 MG/2 ML VIAL. IV ONE (10:30)
[2021-05-13] MEDS ORDERED: HEPARIN for IV BOLUS 10,000 UNIT/10 ML VIAL. IV ONE (10:30)
[2021-05-13] MEDS ORDERED: IODIXANOL 320 MG/ML 100 ML VIAL. IART ONE (10:30)
[2021-05-13] MEDS ORDERED: fentaNYL PF VIAL 100 MCG/2 ML VIAL IV ONE (10:30)
[2021-05-13] MEDS ORDERED: CONTRAST GIVEN. MC PRN (10:30)
[2021-05-13] MEDS ORDERED: LIDOCAINE 1% Multi-Dose 20 ML VIAL. INJ ONE (10:30)
[2021-05-13] MEDS ORDERED: VERAPAMIL 5 MG/2 ML VIAL. IART ONE (10:30)
[2021-05-13] MEDS ORDERED: NITROGLYCERIN 200 MCG/2 ML SYRINGE FOR CATH/VASC LAB. IART ONE (10:30)
[2021-05-13] MEDS ORDERED: HEPARIN for IV BOLUS 10,000 UNIT/10 ML VIAL. IART ONE (10:30)
[2021-05-13] MEDS ORDERED: IV NORMAL SALINE 500ML BAG 500 ML IV ONE (10:45)
--- NOTE | 2021-05-13 12:21 | CARD ---
MR#: [id number] Date of Study: 05/13/2021 Ordering Physician: ANSON RAMIREZ, Referring Physician: ANSON RAMIREZ, Tech: RT Valentin(R) APPROVED REPORT Technologist: RT Valentin(R) Nurse: Chichi Rosario RN Procedure(s) performed: FL TIME: 7.4 MINS DOSE: 122 GYCM CONTRAST: 99 ML MODERATE SEDATION: 41MIN LHC, Coronary angiography, iFR of the LAD HISTORY coronary artery disease: hypertension, dyslipidemia. INDICATION The indication(s) include : dyspnea. [facility] Clinical Frailty Scale [facility] Clinical Frailty Scale: Moderately Frail Heart Failure Heart Failure: Yes If Yes, Newly Diagnosed: No If Yes, HF Type: Diastolic If Yes, NYHA Class: Class II CASE TECHNIQUE IV conscious sedation was used throughout procedure with appropriate monitoring and was performed in the presence of a registered nurse who was an independent trained observer other than the physician p erforming the procedure. During this case, Fluoroscopy and low osmolar contrast were used for imaging . Specimen(s) Removed: N/A Estimated Blood loss: 15 cc's. PROCEDURE NARRATIVE Clinical information: 71-year-old male presents to the [facility] [facility] for exertional dyspnea and known prior coronary artery dise ase. Procedure details: After appropriate informed consent the right wrist was prepped and draped in usual sterile fashion. Under 1% lidocaine local anesthesia a 6 Albanian sheath was placed in the right radial artery. Diagnos tic angiography was then performed with a 6 Albanian TIG catheter. Left ventricular end-diastolic pres sure was obtained with a TIG catheter and a pullback was performed. Findings: Aorta 90/60 LVEDP 8 mmHg No LV to aortic pullback gradient Coronary angiography: Left main is a short large-caliber vessel with normal angiographic appearance LAD is a moderate to large caliber vessel with an ostial 50% stenosis and a patent proximal stent. T he mid and distal vessel has mild diffuse disease Ramus is a small caliber vessel with mild diffuse irregularities Left circumflex is a moderate caliber vessel with a proximal 30% stenosis and a patent mid stent RCA is a large-caliber dominant vessel with mild luminal irregularities *Similar to prior angiography the patient has sluggish flow suggestive of endothelial dysfunction Interventional technique: IFR of the LAD Heparin was used for anticoagulation. Through a 6 Albanian JL 3.5 guide catheter a IFR wire was advanc ed to the distal LAD after appropriate normalization. An IFR value of 0.97 was obtained without any drift or pullback gradient. Final angiography demonstrated no evidence of guide or wire related comp lications. Further intervention was then deferred. At case completion all catheters and sheaths wer e removed and hemostasis was achieved via a Terumo radial band. No acute complications Conclusion 1. Normal left-sided filling pressures 2. Two-vessel coronary artery disease with patent stents in the LAD and circumflex 3. Negative IFR of the ostial LAD stenosis Recommendations Aggressive Medical Therapy Weight Loss Reduction Program Signed by : Anson Ramirez, Electronically Approved : 05/13/2021 12:20:55
--- NOTE | 2021-05-13 13:45 | NUR ---
Discharge Note: [facility] Discharge instructions and discharge home medications reviewed with Patient and a copy given. All questions have been answered and understanding verbalized. The following instructions and handouts were given: radial site care and adult moderate sedation Discontinued lines and drains: Peripheral IV intact. Patient discharged to Home or Self Care withSpousevia Wheelchair
== END 2021-05-13 13:00 | disposition home or self-care (01) ==
LOC: CCL 08:17
PROVIDERS: ATTEND Internal Medicine Cardiovascular Disease
DX: R06.09 Other forms of dyspnea (principal); I25.10 Atherosclerotic heart disease of native coronary artery without angina pectoris; I10 Essential (primary) hypertension; E78.00 Pure hypercholesterolemia, unspecified; G47.30 Sleep apnea, unspecified; N40.0 Benign prostatic hyperplasia without lower urinary tract symptoms; Z79.82 Long term (current) use of aspirin; Z79.899 Other long term (current) drug therapy; Z87.891 Personal history of nicotine dependence; Z98.890 Other specified postprocedural states
CPT/HCPCS: 36415; 80048; 85027; 85610; 93458; 93571; 99152; 99153; C1769; C1887; C1894; J1644; J2250; J3010; J3490; Q9967